=== PATIENT | female | born 1995 | race Caucasian/White ===

== ENCOUNTER 2017-12-31 09:07 | Emergency (ER) | payer OTHER, MEDICAID ==
[~2017-12-31] VITALS: Ht 167.6 cm; Wt 84.4 kg
[~2017-12-31 09:07] MED LIST: NAPROSYN500 MG PO; NOHOMEMEDICATIONS; ROBAXIN500 MG PO
[2017-12-31] MEDS ORDERED: IBU800 MG PO (10:09)
[2017-12-31] MEDS ORDERED: AMOXICILLIN 50500 M1 PO (10:09)
[2017-12-31 10:21] VITALS: BP 137/77
== END 2017-12-31 10:22 | disposition home or self-care (01) ==
LOC: M.ERS 09:07
DX: J32.9 Chronic sinusitis, unspecified (principal); J40 Bronchitis, not specified as acute or chronic

== ENCOUNTER 2019-06-18 11:37 | Emergency (ER) | payer OTHER ==
[~2019-06-18] VITALS: Ht 167.6 cm; Wt 88.5 kg
[~2019-06-18 11:37] MED LIST changes: +AMOXICILLIN 50500 M1 PO; +IBU800 MG PO
[2019-06-18 12:05] LABS: INFLUENZA A ANTIGEN Negative (Negative)
[2019-06-18] MEDS ORDERED: TAMIFLU75 MG PO (12:13)
[2019-06-18] MEDS ORDERED: ONDANSETRON HCL4 M2 PO (12:13)
[2019-06-18 12:19] VITALS: BP 136/71
== END 2019-06-18 12:19 | disposition home or self-care (01) ==
LOC: M.ERS 11:37
PROVIDERS: Nurse Practitioner Family
DX: J10.1 Influenza due to other identified influenza virus with other respiratory manifestations (principal); F17.200 Nicotine dependence, unspecified, uncomplicated; Z88.1 Allergy status to other antibiotic agents

== ENCOUNTER 2019-08-27 10:51 | Emergency (ER) | payer OTHER ==
[~2019-08-27] VITALS: Ht 167.6 cm; Wt 86.2 kg
[~2019-08-27 10:51] MED LIST changes: +ONDANSETRON HCL4 M2 PO; +TAMIFLU75 MG PO
[2019-08-27 11:51] LABS: URINE BILIRUBIN NEGATIVE (Negative); URINE BLOOD NEGATIVE (Negative); URINE CLARITY CLEAR; URINE COLOR YELLOW; URINE GLUCOSE-RANDOM NEGATIVE (Negative); URINE KETONES NEGATIVE (Negative); URINE LEUKOCYTES-REFLEX TRACE (Negative); URINE NITRITE-REFLEX NEGATIVE (Negative); URINE PROTEIN NEGATIVE (Negative); URINE UROBILINOGEN 0.2 E.U./dl (0.2-1.0)
[2019-08-27 12:04] LABS: BACTERIA-REFLEX >30 Many /HPF (None Seen); CASTS None Seen /LPF (None Seen); CRYSTALS None Seen /LPF (None Seen); SQUAMOUS 0-3 Few /LPF (0-3); URINE RBC 0-2 Rare /HPF (0-2); URINE WBC-REFLEX 0-5 Rare /HPF (0-5)
[2019-08-27 12:30] LABS: ABSOLUTE BASOPHILS 0.1 thou/uL (0.0-0.2); ABSOLUTE EOSINOPHILS 0.3 thou/uL (0.0-0.7); ABSOLUTE MONOCYTES 0.6 thou/uL (0.0-1.2); ABSOLUTE NEUTROPHILS 3.8 thou/uL (1.6-8.1); HEMATOCRIT 39.2 % (37.0-47.0); HEMOGLOBIN 13.3 gm/dL (12.0-15.0); MCH 30.5 pg (26.0-34.0); MCV 89.5 fL (80.0-100.0); MONOCYTES 8.6 %; MPV 8.6 fl. (7.2-11.1); NUCLEATED RBCS 0 /100WBC; PLATELET COUNT* 202 thou/uL (150-400); POLYS 56.4 %; RBC 4.38 mil/uL (4.20-5.00); RDW-CV 12.9 % (10.5-14.5); WBC 6.7 thou/uL (4.0-11.0)
[2019-08-27 12:42] LABS: CREATININE 0.6 mg/dL (0.6-1.3); POTASSIUM 4.1 mmol/L (3.5-5.1)
[2019-08-27 12:46] LABS: ALBUMIN 3.3 g/dL (3.4-5.0); TOTAL BILIRUBIN 0.3 mg/dL (<0.1-1.0); TOTAL PROTEIN 6.4 g/dL (6.4-8.2)
[2019-08-27] MEDS ORDERED: ONDANSETRON HCL4 M2 PO (14:16)
[2019-08-27] MEDS ORDERED: BENTYL 20 MG TA20 M1 PO (14:16)
[2019-08-27] MEDS ORDERED: KEFLEX500 M1 PO (14:20)
[2019-08-27 14:36] VITALS: BP 110/48
== END 2019-08-27 14:36 | disposition home or self-care (01) ==
LOC: M.ERS 10:51
PROVIDERS: Nurse Practitioner Family
DX: K52.9 Noninfective gastroenteritis and colitis, unspecified (principal); N39.0 Urinary tract infection, site not specified; F17.210 Nicotine dependence, cigarettes, uncomplicated; Z88.1 Allergy status to other antibiotic agents; Z90.49 Acquired absence of other specified parts of digestive tract

== ENCOUNTER 2019-11-24 15:13 | Emergency (ER) | payer OTHER ==
[~2019-11-24] VITALS: Ht 167.6 cm; Wt 88.5 kg
[~2019-11-24 15:13] MED LIST changes: +BENTYL 20 MG TA20 M1 PO; +KEFLEX500 M1 PO
[2019-11-24 15:30] LABS: URINE BILIRUBIN NEGATIVE (Negative); URINE BLOOD NEGATIVE (Negative); URINE CLARITY CLEAR; URINE COLOR YELLOW; URINE GLUCOSE-RANDOM NEGATIVE (Negative); URINE KETONES NEGATIVE (Negative); URINE LEUKOCYTES-REFLEX NEGATIVE (Negative); URINE NITRITE-REFLEX NEGATIVE (Negative); URINE PROTEIN NEGATIVE (Negative); URINE UROBILINOGEN 0.2 E.U./dl (0.2-1.0)
[2019-11-24 15:52] LABS: ABSOLUTE BASOPHILS 0.1 thou/uL (0.0-0.2); ABSOLUTE EOSINOPHILS 0.3 thou/uL (0.0-0.7); ABSOLUTE LYMPHOCYTES 2.5 thou/uL (0.8-5.3); ABSOLUTE MONOCYTES 0.6 thou/uL (0.0-1.2); ABSOLUTE NEUTROPHILS 7.4 thou/uL (1.6-8.1); BASOPHILS 0.9 %; EOSINOPHILS 2.5 %; HEMATOCRIT 40.1 % (37.0-47.0); HEMOGLOBIN 13.9 gm/dL (12.0-15.0); LYMPHOCYTES 22.7 %; MCHC 34.8 g/dL (28.0-37.0); MCV 89.2 fL (80.0-100.0); MPV 8.8 fl. (7.2-11.1); NUCLEATED RBCS 0 /100WBC; PLATELET COUNT* 220 thou/uL (150-400); POLYS 67.9 %; RBC 4.49 mil/uL (4.20-5.00); RDW-CV 12.8 % (10.5-14.5); WBC 10.8 thou/uL (4.0-11.0)
[2019-11-24 16:00] LABS: CALCIUM 8.3 mg/dL (8.5-10.1); CREATININE 0.8 mg/dL (0.6-1.3); POTASSIUM 3.9 mmol/L (3.5-5.1)
[2019-11-24 16:04] LABS: ALBUMIN 3.9 g/dL (3.4-5.0); TOTAL BILIRUBIN 0.2 mg/dL (<0.1-1.0); TOTAL PROTEIN 7.2 g/dL (6.4-8.2)
[2019-11-24] MEDS ORDERED: CIPRO500 MG PO (17:04)
[2019-11-24] MEDS ORDERED: TYLENOL WITH CO1 TA1 PO (17:04)
[2019-11-24] MEDS ORDERED: FLAGYL500 M1 PO (17:04)
[2019-11-24] MEDS ORDERED: ONDANSETRON ODT4 MG PO (17:04)
[2019-11-24 17:18] VITALS: BP 116/64
== END 2019-11-24 17:18 | disposition home or self-care (01) ==
LOC: M.ERS 15:13
PROVIDERS: Physician Assistant
DX: R10.31 Right lower quadrant pain (principal); R10.11 Right upper quadrant pain; Z88.1 Allergy status to other antibiotic agents; Z79.899 Other long term (current) drug therapy; Z90.49 Acquired absence of other specified parts of digestive tract

== ENCOUNTER 2019-11-29 02:18 | Observation (INO) | payer OTHER ==
[~2019-11-29] VITALS: Ht 167.6 cm; Wt 88.5 kg
[~2019-11-29 02:18] MED LIST changes: +CIPRO500 MG PO; +FLAGYL500 M1 PO; +ONDANSETRON ODT4 MG PO; +TYLENOL WITH CO1 TA1 PO
[2019-11-29 02:25] VITALS: BP 145/71
[2019-11-29 03:03] LABS: URINE BILIRUBIN NEGATIVE (Negative); URINE BLOOD TRACE (Negative); URINE CLARITY CLEAR; URINE COLOR YELLOW; URINE GLUCOSE-RANDOM NEGATIVE (Negative); URINE KETONES TRACE (Negative); URINE LEUKOCYTES NEGATIVE (Negative); URINE NITRITE NEGATIVE (Negative); URINE PROTEIN TRACE (Negative); URINE SPECIFIC GRAVITY >= 1.030 (1.005-1.030); URINE UROBILINOGEN 0.2 E.U./dl (0.2-1.0)
[2019-11-29 03:04] LABS: ABSOLUTE EOSINOPHILS 0.2 thou/uL (0.0-0.7); ABSOLUTE LYMPHOCYTES 2.4 thou/uL (0.8-5.3); ABSOLUTE MONOCYTES 0.8 thou/uL (0.0-1.2); ABSOLUTE NEUTROPHILS 10.7 thou/uL (1.6-8.1); BASOPHILS 0.3 %; EOSINOPHILS 1.5 %; HEMATOCRIT 40.5 % (37.0-47.0); HEMOGLOBIN 14.2 gm/dL (12.0-15.0); LYMPHOCYTES 16.8 %; MCH 31.2 pg (26.0-34.0); MCV 89.2 fL (80.0-100.0); MONOCYTES 5.6 %; MPV 8.9 fl. (7.2-11.1); NUCLEATED RBCS 0 /100WBC; PLATELET COUNT* 226 thou/uL (150-400); POLYS 75.8 %; RBC 4.54 mil/uL (4.20-5.00)
[2019-11-29 04:32] LABS: CALCIUM 8.9 mg/dL (8.5-10.1); CREATININE 1.1 mg/dL (0.6-1.3); POTASSIUM 3.1 mmol/L (3.5-5.1); TOTAL BILIRUBIN 0.7 mg/dL (<0.1-1.0); TOTAL PROTEIN 7.2 g/dL (6.4-8.2)
[2019-11-29 09:10] VITALS: BP 96/45
[2019-11-29 19:40] VITALS: BP 104/48
[2019-11-30] MEDS ORDERED: PHENERGAN 25 MG25 M1 PO (08:57)
[2019-11-30] MEDS ORDERED: TYLENOL EXTRA500 MG PO (08:57)
[2019-11-30] MEDS ORDERED: LEVAQUIN 750 M750 MG PO (08:57)
[2019-11-30] MEDS ORDERED: FLAGYL500 M1 PO (08:57)
[2019-11-30 09:30] VITALS: BP 104/48
[2019-11-30 14:11] LABS: ABSOLUTE BASOPHILS 0.1 thou/uL (0.0-0.2); ABSOLUTE EOSINOPHILS 0.1 thou/uL (0.0-0.7); ABSOLUTE LYMPHOCYTES 1.9 thou/uL (0.8-5.3); ABSOLUTE MONOCYTES 0.5 thou/uL (0.0-1.2); ABSOLUTE NEUTROPHILS 7.9 thou/uL (1.6-8.1); BASOPHILS 0.7 %; EOSINOPHILS 1.1 %; HEMATOCRIT 39.2 % (37.0-47.0); HEMOGLOBIN 13.5 gm/dL (12.0-15.0); LYMPHOCYTES 17.9 %; MCHC 34.3 g/dL (28.0-37.0); MCV 90.1 fL (80.0-100.0); MONOCYTES 5.1 %; MPV 8.7 fl. (7.2-11.1); NUCLEATED RBCS 0 /100WBC; PLATELET COUNT* 215 thou/uL (150-400); POLYS 75.2 %; RBC 4.35 mil/uL (4.20-5.00); RDW-CV 13.1 % (10.5-14.5); WBC 10.5 thou/uL (4.0-11.0)
[2019-11-30 14:22] LABS: ALBUMIN 3.4 g/dL (3.4-5.0); CALCIUM 8.2 mg/dL (8.5-10.1); CREATININE 0.8 mg/dL (0.6-1.3); POTASSIUM 3.8 mmol/L (3.5-5.1); TOTAL BILIRUBIN 0.5 mg/dL (<0.1-1.0); TOTAL PROTEIN 6.5 g/dL (6.4-8.2)
[2019-11-30 15:11] LABS: ESR (SEDRATE) 1 mm/hr (0-20)
[2019-11-30 16:30] VITALS: BP 127/76
[2019-11-30 16:56] VITALS: BP 104/48
[2019-11-30] MEDS ORDERED: BENTYL 10 MG CA10 M1 PO (17:50)
--- NOTE | 2019-12-04 22:06 | PATH ---
[address] [address] PATHOLOGY RPT PROCEDURE Name: BEA PENA Room: [address] Dustin#: [id number] Admission: 11/29/19 Date of : 89 Discharge: 11/30/19 Report #: [id number] Path Case #: [id number] [facility] Accession Number: [id number] . 01 Material submitted: . PART A: small bowel - SMALL BOWEL BIOPSIES FOR DIARRHEA PART B: stomach - ANTRAL BIOPSIES FOR H. PYLORI FOR EROSIVE GASTRITIS PART C: colon - RANDOM COLON BIOPSIES PART D: colon - DESCENDING COLON POLYP. Modifiers: descending PART E: colon - SIGMOID COLON POLYP. Modifiers: sigmoid . 01 Clinical history: . Diarrhea A. For diarrhea B. For H. pylori for erosive gastritis . 02 Diagnosis: A. "Small bowel biopsies for diarrhea", biopsy: - Small bowel/duodenal mucosa with minimal histologic alterations; no evidence of celiac sprue. . B. "Antral biopsies for H. pylori for erosive gastritis", biopsy: - Gastric antral-type mucosa with mild reactive and focal regenerative changes. - Negative H. pylori immunohistochemical stain (block B1); control reacted appropriately. . C. "Random colon biopsies", biopsy: - Colonic mucosa with mild reactive changes including reactive appearing lymphoid aggregates; no evidence of active, lymphocytic or collagenous colitis and no dysplasia seen. . D. "Descending colon polyp", biopsy: - Hyperplastic polyp. . E. "Sigmoid colon polyp", biopsy: - Hyperplastic polyp. (CLW:lukas; 12/04/2019) . . S 12/04/2019 1308 Local . 02 Electronically signed: . Mickie Ferro MD, Pathologist NPI- [id number] . 01 Gross description: . A. The specimen is received in formalin, [place] "[place] [address] PATHOLOGY RPT PROCEDURE Name: ROMAINEBEA [address]: [address]#: [id number] Admission: 11/29/19 Date of : 95 Discharge: 11/30/19 Report #: [id number] Path Case #: [id number] bowel biopsies" and consists of multiple fragments of pink-gallegos tissue measuring 1.1 x 0.5 x 0.3 cm in aggregate which are entirely submitted in A1. . B. The specimen is received in formalin, labeled "Bea Pena, antral biopsies" and consists of 2 fragments of pink-gallegos tissue measuring 0.5 x 0.2 cm and 0.2 x 0.2 cm which are entirely submitted in B1. . C. The specimen is received in formalin, labeled "Bea Pena, random colon biopsies" and consists of multiple fragments of gallegos tissue measuring 2.4 x 0.6 x 0.2 cm in aggregate which are entirely submitted in C1. . D. The specimen is received in formalin, labeled "Bea Pena, descending colon polyp" and consists of a fragment of gallegos tissue measuring 0.2 x 0.2 cm which is entirely submitted in D1. . E. The specimen is received in formalin, labeled "Bea Pena, sigmoid colon polyp" and consists of a fragment of pink-gallegos tissue measuring 0.3 x 0.3 cm which is entirely submitted in E1. (SDY; 12/03/2019) SYU/SYU 12/04/2019 1653 Local . 02 Pathologist provided ICD-10: K63.5, R19.7, R10.9 . 02 CPT . 870449, 364342, 869915, 001525, 984236, L08411 Specimen Comment: A courtesy copy of this report has been sent to [phone] Specimen Comment: [phone] Specimen Comment: Report sent to / DR NIÑO Performed at: [facility] [address], [place], [place] [id number] MD Malick Stanton MD Phone: [phone] Performed at: [facility] [address], [place], [place] [id number] MD Hayes Valencia MD Phone: [phone]
--- NOTE | 2019-12-09 11:06 | CON ---
[facility] [address] [place] [address] CONSULTATION Name: LORENZO GAVIN Room: [address] Keith Chan#: [id number] Admission: 11/29/19 Attend Phys: Nathan Sotelo MD Discharge: 11/30/19 Date of : [birth year] Report #: [id number] THIS REPORT FOR: //name// cc: TG Madrigal family physician/PCP TG Madrigal family physician/PCP ~ THIS REPORT FOR: //name// CC: Nathan Sotelo MD [facility] physician/PCP DATE OF SERVICE: 11/29/2019 REFERRING PHYSICIAN: Nathan Sotelo M.D. The patient has no primary care provider. REASON FOR CONSULTATION: Abdominal pain. IMPRESSION: 1. Generalized abdominal pain associated with nausea and vomiting. 2. Abnormal CAT scan suggestive of colitis -- no history of antibiotic exposure. 3. Strong family history of colon cancer in her mother and maternal grandmother. 4. Status post laparoscopic cholecystectomy for acalculous cholecystitis at [facility] in [facility] in 01/2019. RECOMMENDATIONS: 1. Given the patient's history, we will proceed with upper endoscopy, flexible sigmoidoscopy, possible colonoscopy depending on adequacy of her bowel prep. 2. We will give the patient clear liquid diet ____ laxatives here and there by mouth today. 3. We will give her some Dulcolax tabs tonight and tomorrow and then followed by enemas. I have discussed the plans with the patient as well as her and they are agreeable to the same. HISTORY OF PRESENT ILLNESS: The patient is a very pleasant 23-year-old white female who has just not been feeling good for the last few days. She actually was seen in the Emergency Room back on 11/24/2019 with complaints of abdominal pain and underwent a CT scan of the abdomen and pelvis, which suggested that she had colitis. She was placed on Cipro and Flagyl and did not notice any improvement with the same. She continued to have problem with pain, mostly in the upper abdomen pushing up into her chest and then causing pain, which would wax and wane all over. She has not been able to eat much of anything at this time. She just does not have an appetite. She has [place] [address] CONSULTATION Name: LORENZO GAVIN [address] [id number] Admission: 11/29/19 Attend Phys: Nathan Sotelo MD Discharge: 11/30/19 Date of : 89 Report #: [id number] time, but she is not feeling good. She just wish she could eat. She denies any major change with her bowels or bowel frequency. She denied any diarrhea. She has no prior history of colitis including ulcerative colitis or Crohn's. She does have family history of colon cancer in both her mother and maternal great grandmother. She denies associated weight loss. She denied any bleeding as well. She is admitted to the hospital for evaluation and treatment. ALLERGIES: AMOXICILLIN. CURRENT MEDICATIONS: Include Cipro and Flagyl. She had been on some dicyclomine as well. PAST MEDICAL AND SURGICAL HISTORY: Remarkable for patient being hard of hearing and having hearing aids. She has to lip breathe at this time. She did have previous cholecystectomy, tonsillectomy. She has spontaneous in the past as well. SOCIAL HISTORY: The patient does smoke about a pack per day. She does not drink alcohol. Denies any drug use. FAMILY HISTORY: As above. PHYSICAL EXAMINATION: GENERAL: Pleasant 23-year-old white female who is awake and alert. CARDIOPULMONARY: Revealed a regular rate and rhythm. LUNGS: Clear. ABDOMEN: Soft, diffusely tender. No rebound or guarding noted. LABORATORY DATA: Revealed a white count of 14.0, hemoglobin 14.2, platelet count 226,000, MCV is 89.2, and RDW is 13.0. Her sodium 135, potassium is 3.1, chloride 103, bicarbonate 22, BUN 9, creatinine 1.1. Total bilirubin is 0.7, alkaline phosphatase is 102, AST is 58, ALT is 25. Lipase is normal at 49. IMAGING STUDIES: CT scan of the abdomen and pelvis from the was reviewed and I see that the findings were suspicious for colitis versus an evacuated colon that was just decompressed by my report. Repeat CT scan performed on the was essentially unrevealing. No major issues were noted. DISCUSSION: At the present time, the patient has problem with generalized abdominal pain, nausea, vomiting, and not much of an appetite. We will proceed with upper endoscopy, flexible sigmoidoscopy, and possible colonoscopy tomorrow and make further recommendations thereafter. <ELECTRONICALLY SIGNED> By: Jacobo Harris DO 12/09/19 1106 1224 [id number] Harris DO /nt
== END 2019-11-30 18:00 | disposition home or self-care (01) ==
LOC: M.ERS 02:18 → M.TBA-ER 05:14 → M.3W 05:14 → M.TBA-ER 05:14 → M.3W 08:50
PROVIDERS: Internal Medicine; Internal Medicine Gastroenterology; Personal Emergency Response Attendant; ADMIT Internal Medicine; ATTEND Internal Medicine
DX: D12.5 Benign neoplasm of sigmoid colon (principal); D12.4 Benign neoplasm of descending colon; K31.89 Other diseases of stomach and duodenum; R10.84 Generalized abdominal pain; K52.9 Noninfective gastroenteritis and colitis, unspecified; E86.0 Dehydration; E87.6 Hypokalemia; E87.1 Hypo-osmolality and hyponatremia; N28.9 Disorder of kidney and ureter, unspecified; R11.2 Nausea with vomiting, unspecified; R93.3 Abnormal findings on diagnostic imaging of other parts of digestive tract; F17.210 Nicotine dependence, cigarettes, uncomplicated

== ENCOUNTER 2020-06-29 19:44 | Emergency (ER) | payer OTHER ==
[~2020-06-29] VITALS: Ht 167.6 cm; Wt 83.9 kg
[~2020-06-29 19:44] MED LIST changes: +BENTYL 10 MG CA10 M1 PO; +LEVAQUIN 750 M750 MG PO; +PHENERGAN 25 MG25 M1 PO; +TYLENOL EXTRA500 MG PO
[2020-06-29] MEDS ORDERED: NAPROSYN500 MG PO (21:13)
[2020-06-29] MEDS ORDERED: CLEOCIN HCL150 MG PO (21:13)
[2020-06-29] MEDS ORDERED: APAP W/CODEINE1 TA2 PO (21:13)
[2020-06-29 21:19] VITALS: BP 119/73
== END 2020-06-29 21:20 | disposition home or self-care (01) ==
LOC: M.ERS 19:44
DX: K08.89 Other specified disorders of teeth and supporting structures (principal); Z90.49 Acquired absence of other specified parts of digestive tract; Z88.1 Allergy status to other antibiotic agents

== ENCOUNTER 2021-06-19 15:23 | Emergency (ER) | payer OTHER ==
[~2021-06-19] VITALS: Ht 167.6 cm; Wt 81.7 kg
[~2021-06-19 15:23] MED LIST changes: +APAP W/CODEINE1 TA2 PO; +CLEOCIN HCL150 MG PO
[2021-06-19] MEDS ORDERED: CLEOCIN HCL300 MG PO (16:16)
[2021-06-19] MEDS ORDERED: HYDROCODON-ACE1 EAC7 PO (16:16)
[2021-06-19 16:39] VITALS: BP 148/93
== END 2021-06-19 16:40 | disposition home or self-care (01) ==
LOC: M.ERS 15:23
DX: K04.7 Periapical abscess without sinus (principal); F17.210 Nicotine dependence, cigarettes, uncomplicated; Z90.49 Acquired absence of other specified parts of digestive tract; Z90.89 Acquired absence of other organs; Z88.0 Allergy status to penicillin